=== PATIENT | female | born 1985 | race Caucasian/White ===

== ENCOUNTER → 2018-05-01 | Outpatient (CLI) | payer OTHER | LOC: RAD 13:03 | DX: N83.201 Unspecified ovarian cyst, right side (principal); Z90.721 Acquired absence of ovaries, unilateral ==

== ENCOUNTER → 2018-06-06 | Outpatient (CLI) | payer OTHER | LOC: LAB 16:17 | DX: Z86.39 Personal history of other endocrine, nutritional and metabolic disease (principal) ==

== ENCOUNTER → 2018-07-21 | Outpatient (CLI) | payer BC | LOC: RAD 14:41 | DX: R60.9 Edema, unspecified (principal); M79.661 Pain in right lower leg ==

== ENCOUNTER → 2019-01-19 | Outpatient (CLI) | payer BC | LOC: RAD 07:38 | DX: R10.11 Right upper quadrant pain (principal) ==

== ENCOUNTER → 2019-05-04 | Outpatient (CLI) | payer BC ==
[2019-05-04 11:04] LABS: BASO # 0.1 (0.02-0.10); EOS # 0.2 (0.04-0.40); EOS % 3.1 % (1.0-5.0); HEMATOCRIT 38.6 % (37.0-47.0); HEMOGLOBIN 12.5 g/dL (12.5-16.0); LYMPH# 2.8 (1.50-4.00); MEAN CELL VOLUME 84 fl (78-100); MEAN CORPUSCULAR HEMOGLOBIN 27 pg (27-31); MEAN CORPUSCULAR HGB CONC 32 g/dL (33-37); MEAN PLATELET VOLUME 10.1 fl (7.4-10.4); MONO # 0.7 (0.20-0.80); NEU # 3.8 (1.40-6.50); PLATELET COUNT 449 K/mm3 (130-400); RED BLOOD COUNT 4.59 M/mm3 (4.10-5.30); RED CELL DISTRIBUTION WIDTH 14.8 % (11.5-14.5); WHITE BLOOD COUNT 7.5 K/mm3 (4.8-10.8)
[2019-05-04 11:16] LABS: POTASSIUM 3.8 mmol/L (3.5-5.1)
[2019-05-04 11:17] LABS: ALBUMIN 3.9 g/dL (3.5-5.0)
[2019-05-04 11:18] LABS: CALCIUM 9.7 mg/dL (8.3-10.5)
[2019-05-04 11:19] LABS: TOTAL PROTEIN 7.3 g/dL (6.4-8.3)
[2019-05-04 11:21] LABS: TOTAL BILIRUBIN 0.3 mg/dL (0.2-1.2)
== END ==
LOC: LAB 10:36 → RAD 10:36
PROVIDERS: Family Medicine
DX: Z00.00 Encounter for general adult medical examination without abnormal findings (principal); Z13.220 Encounter for screening for lipoid disorders; M54.2 Cervicalgia; E55.9 Vitamin D deficiency, unspecified; R53.83 Other fatigue

== ENCOUNTER → 2019-05-14 | Outpatient (CLI) | payer BC | LOC: RAD 12:00 | DX: M54.2 Cervicalgia (principal); G89.29 Other chronic pain ==

== ENCOUNTER → 2020-04-11 | Outpatient (CLI) | payer BC | LOC: RAD 14:00 | DX: R42 Dizziness and giddiness (principal) | CPT/HCPCS: A9585 ==

== ENCOUNTER → 2020-09-22 | Outpatient (CLI) | payer BC | LOC: RAD 16:00 | DX: M25.551 Pain in right hip (principal); M25.552 Pain in left hip; R07.81 Pleurodynia ==

== ENCOUNTER → 2020-10-05 | Outpatient (CLI) | payer BC ==
[2020-10-05 12:39] LABS: BASO # 0.1 (0.02-0.10); EOS # 0.2 (0.04-0.40); HEMATOCRIT 36.6 % (37.0-47.0); HEMOGLOBIN 11.2 g/dL (12.5-16.0); LYMPH# 2.4 (1.50-4.00); MEAN CELL VOLUME 80 fl (78-100); MEAN CORPUSCULAR HGB CONC 31 g/dL (33-37); MONO # 0.6 (0.20-0.80); NEU # 5.2 (1.40-6.50); RED CELL DISTRIBUTION WIDTH 15.9 % (11.5-14.5); WHITE BLOOD COUNT 8.5 K/mm3 (4.8-10.8)
[2020-10-05 12:46] LABS: POTASSIUM 3.5 mmol/L (3.5-5.1)
[2020-10-05 12:47] LABS: ALBUMIN 3.9 g/dL (3.5-5.0)
[2020-10-05 12:49] LABS: TOTAL PROTEIN 7.4 g/dL (6.4-8.3)
[2020-10-05 12:51] LABS: TOTAL BILIRUBIN 0.3 mg/dL (0.2-1.2)
[2020-10-05 12:58] LABS: MEAN CORPUSCULAR HEMOGLOBIN 24 pg (27-31); PLATELET COUNT 524 K/mm3 (130-400)
== END ==
LOC: LAB 11:48
PROVIDERS: Family Medicine
DX: Z00.00 Encounter for general adult medical examination without abnormal findings (principal); E78.5 Hyperlipidemia, unspecified; E55.9 Vitamin D deficiency, unspecified

== ENCOUNTER → 2020-10-11 | Outpatient (CLI) | payer BC | LOC: LAB 16:17 | DX: D47.3 Essential (hemorrhagic) thrombocythemia (principal) ==

== ENCOUNTER → 2020-12-22 | Outpatient (CLI) | payer BC ==
[2020-12-22 10:57] LABS: BASO # 0.1 (0.02-0.10); EOS # 0.2 (0.04-0.40); EOS % 2.4 % (1.0-5.0); HEMATOCRIT 37.3 % (37.0-47.0); HEMOGLOBIN 11.9 g/dL (12.5-16.0); LYMPH# 2.2 (1.50-4.00); MEAN CELL VOLUME 82 fl (78-100); MEAN CORPUSCULAR HEMOGLOBIN 26 pg (27-31); MEAN CORPUSCULAR HGB CONC 32 g/dL (33-37); MEAN PLATELET VOLUME 10.5 fl (7.4-10.4); MONO # 0.7 (0.20-0.80); PLATELET COUNT 407 K/mm3 (130-400); RED BLOOD COUNT 4.53 M/mm3 (4.10-5.30); RED CELL DISTRIBUTION WIDTH 16.3 % (11.5-14.5); WHITE BLOOD COUNT 8.2 K/mm3 (4.8-10.8)
== END ==
LOC: LAB 10:27
PROVIDERS: Family Medicine
DX: D47.3 Essential (hemorrhagic) thrombocythemia (principal); E55.9 Vitamin D deficiency, unspecified

== ENCOUNTER → 2022-05-10 | Outpatient (CLI) | payer BC | LOC: RAD 18:07 | DX: M47.816 Spondylosis without myelopathy or radiculopathy, lumbar region (principal) ==

== ENCOUNTER → 2022-05-25 | Outpatient (CLI) | payer BC | LOC: LAB 18:26 | DX: J02.9 Acute pharyngitis, unspecified (principal) ==

== ENCOUNTER 2024-08-20 08:00 | Outpatient (RCR) | payer OTHER | END 2024-09-05 | LOC: PT | DX: M77.8 Other enthesopathies, not elsewhere classified (principal) ==

== ENCOUNTER 2024-09-09 08:00 | Outpatient (RCR) | payer OTHER | END 2024-10-06 | LOC: PT | DX: M77.8 Other enthesopathies, not elsewhere classified (principal) ==